=== PATIENT | female | born 1980 | race African-American/Black ===

== ENCOUNTER → 2017-03-25 | Outpatient (CLI) | payer OTHER ==
[~2017-03-25] MED LIST: ARIP2TAB PO; BETA15OI3 TP; CARB200T PO; CLOB15CR19 TP; Lopressor PO; MELO-190 PO; NALT1TAB PO; OXYC5CAP4 PO; PROP10TA PO; SERT25TA PO; SPIR25TA3 PO; TOPI25TA32 PO
[2017-03-25 13:40] LABS: BLOOD UREA NITROGEN 7 mg/dL (7-18)
[2017-03-25 13:44] LABS: ASPARTATE AMINO TRANSFERASE 17 U/L (15-37)
== END | disposition home or self-care (01) ==
LOC: STAR 12:29
PROVIDERS: ATTEND Orthopaedic Surgery
DX: S83.512A Sprain of anterior cruciate ligament of left knee, initial encounter (principal); X58.XXXA Exposure to other specified factors, initial encounter; Y93.89 Activity, other specified; Y92.89 Other specified places as the place of occurrence of the external cause; Y99.8 Other external cause status
CPT/HCPCS: 36415; 80053

== ENCOUNTER 2017-04-07 09:13 | Day surgery (SDC) | payer OTHER ==
[~2017-04-07] VITALS: Ht 162.6 cm; Wt 138.0 kg
[~2017-04-07 09:13] MED LIST changes: +KETAMINE 10 MG/ML, 20ML ONE; +ROPIvacaine/PF 0.5%, 20 ML ONE
[2017-04-07] MEDS ORDERED: MIDAZOLAM 1 MG/ML, 2ML ONE ×3 (09:57→13:00)
[2017-04-07] MEDS ORDERED: FENTANYL PF 250 MCG/5ML ONE (09:57)
[2017-04-07] MEDS ORDERED: LACTATED RINGERS 1,000 ML IV SCH (10:17)
[2017-04-07 10:21] VITALS: BP 145/94
[2017-04-07] MEDS ORDERED: BALANCED SALT OPHTH IRRIG SOLN 18ML ONE (10:50)
[2017-04-07] MEDS ORDERED: PROPOFOL 10 MG/ML, 20ML ONE (11:04)
[2017-04-07] MEDS ORDERED: CEFAZOLIN 1,000 MG ONE (11:04)
[2017-04-07] MEDS ORDERED: ONDANSETRON 2MG/ML, 2ML ONE ×2 (11:04→16:18)
[2017-04-07] MEDS ORDERED: LIDOCAINE 0.5%-EPI 1:200K, 50ML INFIL ONE (11:18)
[2017-04-07] MEDS ORDERED: ROPIvacaine/PF 0.5%, 30 ML INFIL ONE (11:18)
[2017-04-07] MEDS ORDERED: ACETAMINOPHEN 325 MG TABLET PO PRN (12:00)
[2017-04-07] MEDS ORDERED: PROMETHAZINE 25 MG/ML, 1ML IV PRN (12:00)
[2017-04-07] MEDS ORDERED: OXYcodone 5 MG/5 ML ORAL.SOL UDC PO PRN (12:00)
[2017-04-07] MEDS: MIDAZOLAM 1 MG/ML, 2ML IV PRN ×3 (12:35→13:03)
[2017-04-07] MEDS ORDERED: HYDROmorphone 2 MG/ML, 1ML ONE (12:36)
[2017-04-07] MEDS ORDERED: ACETAMINOPHEN 650 MG/20.3 ML UDC ONE (12:36)
[2017-04-07] MEDS ORDERED: OXYcodone 5 MG/5 ML ORAL.SOL UDC ONE (12:37)
[2017-04-07] MEDS: HYDROmorphone 1 MG/ML, 1ML IV PRN ×4 (12:41→13:32)
[2017-04-07] MEDS: FENTANYL PF 100 MCG/2ML IV PRN ×3 (12:55→13:33)
[2017-04-07] MEDS ORDERED: DIAZEPAM 5 MG/ML, 2ML IV ONE (13:00)
[2017-04-07] MEDS ORDERED: FENTANYL PF 100 MCG/2ML ONE (13:00)
[2017-04-07] MEDS ORDERED: hydrALAzine 20 MG/ML, 1ML ONE (13:15)
[2017-04-07] MEDS ORDERED: LABETALOL 5MG/ML, 20ML IV PRN (13:30)
[2017-04-07] MEDS ORDERED: hydrALAzine 20 MG/ML, 1ML IV PRN (13:30)
[2017-04-07] MEDS ORDERED: KETOROLAC 30 MG/1 ML ONE (14:19)
[2017-04-07] MEDS ORDERED: KETOROLAC 30 MG/1 ML IVPush ONE (14:30)
[2017-04-07] MEDS ORDERED: ONDANSETRON 2MG/ML, 2ML IVPush ONE (16:30)
== END 2017-04-07 17:30 | disposition home or self-care (01) ==
LOC: OUT 09:13
PROVIDERS: ATTEND Orthopaedic Surgery
DX: S83.512A Sprain of anterior cruciate ligament of left knee, initial encounter (principal); S83.422A Sprain of lateral collateral ligament of left knee, initial encounter; S83.412A Sprain of medial collateral ligament of left knee, initial encounter; G40.909 Epilepsy, unspecified, not intractable, without status epilepticus; I69.354 Hemiplegia and hemiparesis following cerebral infarction affecting left non-dominant side; E66.9 Obesity, unspecified; Z68.43 Body mass index [BMI] 50.0-59.9, adult; W01.0XXA Fall on same level from slipping, tripping and stumbling without subsequent striking against object, initial encounter; Y93.89 Activity, other specified; Z88.5 Allergy status to narcotic agent; Z91.013 Allergy to seafood; Z88.0 Allergy status to penicillin; Z79.899 Other long term (current) drug therapy
CPT/HCPCS: 29888; C1713; C1762; J0360; J0690; J1170; J1885; J2250; J2405; J2704; J2795; J3010; J7120